=== PATIENT | female | born 1950 | race Caucasian/White ===

== ENCOUNTER 2017-05-25 11:14 | Emergency (ER) | payer MEDICAID ==
[~2017-05-25] VITALS: Ht 165.1 cm; Wt 74.0 kg
[2017-05-25 11:25] VITALS: Ht 165.1 cm; Wt 74.0 kg
[2017-05-25] MEDS ORDERED: PEN1DIS.48 MC (12:09)
[2017-05-25] MEDS ORDERED: LANT3I SC (12:09)
--- NOTE | 2017-05-25 12:30 | ERD ---
ER Documentation Chief Complaint Date/Time DATE: 05/25/17 TIME: 12:24 Chief Complaint pt needs insulin refill; no diabetic symptoms HPI This is a 66-year-old female presenting to the emergency department with son for refill of insulin prescription. [place] out of her medication for glargine insulin. Patient has been taking 20 units of glargine once per day. Patient states she has been out of her medication for 1 day. No polydipsia or polyuria. No fevers or chills. No dysuria or hematuria. Patient states she has a primary care doctor in [place] and is going there next week. Patient has not checked her blood glucose. No chest pain, shortness of breath or difficulty breathing. No nausea, vomiting, abdominal pain or back pain. Patient has no complaints. ROS All systems reviewed and are negative except as per history of present illness. Medications Home Meds Active Scripts Pen Needle, Diabetic (Insulin Pen Needle) 1 Each Dis.needle, 1 EACH , #30 Prov:AGUILAR HERNANDEZ NP 05/25/17 Insulin Glargine* (Lantus*) 100 Unit/Ml Soln, 20 UNIT SC DAILY, #1 VIAL Prov:AGUILAR HERNANDEZ NP 05/25/17 PMhx/Soc Medical and Surgical Hx: pt denies Medical Hx, pt denies Surgical Hx Hx Alcohol Use: No Hx Substance Use: No Hx Tobacco Use: No Smoking Status: Never smoker Physical Exam Vitals Vital Signs Date Time Temp Pulse Resp B/P Pulse Ox O2 Delivery O2 Flow Rate FiO2 05/25/17 11:25 98.2 84 18 153/72 96 Physical Exam Const: No acute distress Head: Atraumatic Eyes: Normal Conjunctiva ENT: Normal External Ears, Nose and Mouth. Neck: Full range of motion..~ No meningismus. Resp: Clear to auscultation bilaterally. No wheezing, rhonchi or crackles. Cardio: Regular rate and rhythm, no murmurs Abd: Soft, non tender, non distended. Normal bowel sounds Skin: No petechiae or rashes Back: No midline or flank tenderness Ext: No cyanosis, or edema Neur: Awake and alert Psych: Normal Mood and Affect Results 24 hrs Laboratory Tests Test 05/25/17 12:02 Bedside Glucose 287mg/dL Procedures/MDM MDM: 66-year-old female presents emergency department for refill of glargine insulin. [place] and has been out of her insulin for 1 day. Patient's glucose checked at bedside and glucose is 287. Patient states she ate about 1 hour ago. Patient has no complaints. Vital signs are stable. Patient is afebrile. No polydipsia or polyuria. No dysuria or hematuria. Patient appears asymptomatic. Patient is calm and stable throughout ED visit. Low suspicion for DKA, hyperglycemia or hypoglycemia. Patient is appropriate for outpatient management and will be given prescription for glargine insulin and insulin pen needles. Instructed patient to follow-up with primary care provider in the next 2-3 days for reassessment and additional management. Resources provided. Return to ED for any high fever, chest pain, difficulty breathing, shortness breath, wheezing, vomiting, diarrhea, abdominal pain or any new or worsening symptoms. Patient verbalizes understanding. All questions answered at discharge. Cambodian translation use during this encounter. Departure Diagnosis: Primary Impression: Encounter for medication refill Additional Impression: Diabetes mellitus type 2 in nonobese Condition: Stable Patient Instructions: Understanding Type 2 Diabetes, Insulin Glargine Solution for injection [facility] Usted se mckeon hecho un examen mdico de control que le indica que no est en priyanka condicin que requiera tratamiento urgente en el Departamento de Emergencia. Un estudio ms profundo y el tratamiento de perea condicin pueden esperar sin ningn riesgo hasta que usted sea atendida/o en el consultorio de perea mdico o priyanka cl celsa. Es responsabilidad suya arreglar priyanka poncho para el seguimiento del therese. MANEJO DE CONDICIONES NO URGENTES EN EL FUTURO 1) Si usted tiene un mdico de atencin primaria: Usted debera llamar a perea mdico de atencin primaria antes de venir al departamento de emergencia. Despus de las horas de consultorio, perea doctor o perea asociado/a est disponible por telfono. El mdico o enfermero de joan en el servicio telefnico puede asesorarle por joanna medio para atender el problema, o therese contrario se puede programar priyanka poncho. 2) Si usted no tiene un mdico de atencin primaria: Llame al mdico o clnica de referencia que aparece abajo luis las horas de consultorio para hacer priyanka poncho para que le vean. CLINICAS: [facility] [phone] [facility] [phone] [facility] [phone] [facility] [phone] [facility] [phone] [address] [facility]. [phone] [address] [facility]. [facility] () Usted se mckeon hecho un examen mdico de control que le indica que no est en priyanka condicin que requiera tratamiento urgente en el Departamento de Emergencia. Un estudio ms profundo y el tratamiento de perea condicin pueden esperar sin ningn riesgo hasta que usted sea atendida/o en el consultorio de perea mdico o priyanka cl celsa. Es responsabilidad suya arreglar priyanka poncho para el seguimiento del therese. MANEJO DE CONDICIONES NO URGENTES EN EL FUTURO 1) Si usted tiene un mdico de atencin primaria: Usted debera llamar a perea mdico de atencin primaria antes de venir al departamento de emergencia. Despus de las horas de consultorio, perea doctor o perea asociado/a est disponible por telfono. El mdico o enfermero de joan en el servicio telefnico puede asesorarle por joanna medio para atender el problema, o therese contrario se puede programar priyanka poncho. 2) Si usted no tiene un mdico de atencin primaria: Llame al mdico o condado institucions de referencia que aparece abajo luis las horas de consultorio para hacer priyanka poncho para que le vean. SI USTED NO PUEDE PAGAR PARA JANIE UN MEDICO puede ir a: [facility] [address] [place] [address] [facility] [address] [place] [address] [facility] [address] [place] [address] [facility] [address] [place], [place] [id number] Additional Instructions: Llame al doctor MAANA y cosme priyanka PONCHO PARA DENTRO DE 2-3 HERNANDEZ.Dgale a la secretaria que nosotros le instruimos hacer esta poncho.Avise o llame si perea condicin se empeora antes de la poncho. Regresa aqui si peor o no mejor. Regresar a ED por fiebre debbie, dolor en el pecho, dificultad para respirar, respiracin entrecortada, sibilancias, vmitos, diarrea, dolor abdominal o cualquier sntoma nuevo o que empeora. AGUILAR HERNANDEZ NP May 25, 2017 12:30
== END 2017-05-25 12:34 | disposition home or self-care (01) ==
LOC: FTE 11:14
DX: Z76.0 Encounter for issue of repeat prescription (principal); E11.9 Type 2 diabetes mellitus without complications; Z79.4 Long term (current) use of insulin
CPT/HCPCS: 82962; Z7502; 99281